=== PATIENT | male | born 1960 ===

== ENCOUNTER 2024-07-09 08:45 | Inpatient (IN) | payer OTHER ==
[~2024-07-09] VITALS: Ht 180.3 cm; Wt 76.7 kg
[2024-07-09 13:14] VITALS: BP 139/90
[2024-07-09 13:28] LABS: HEMATOCRIT 43.6 % (39.0-48.0); HEMOGLOBIN 14.5 g/dL (13-16.00); MEAN CORPUSCULAR HEMOGLOBIN 30.3 pg (27.00-32.0); MEAN CORPUSCULAR HGB CONC 33.2 g/dl (32.0-36.0); PLATELET COUNT 245 K/uL (150-450)
[2024-07-09 13:31] LABS: PH,URINE 5.5 (5.0-8.0); URINE APPEARANCE Clear; URINE BILIRRUBIN Negative (NEGATIVE); URINE BLOOD Negative; URINE COLOR Yellow; URINE GLUCOSE Negative (NEGATIVE); URINE KETONE Negative (NEGATIVE); URINE LEUKOCYTE Negative; URINE NITRATE Negative; URINE PROTEIN Negative (NEGATIVE); URINE UROBILINOGEN 0.2 E.U./dl
[2024-07-09 13:35] LABS: URINE BACTERIA 6.1 uL (0.0-1933)
[2024-07-09 13:46] LABS: INR 0.99; PARTIAL THROMBOPLASTIN TIME 26.8 SECONDS (22.0-34.0); PROTHROMBIN TIME 10.8 SECONDS (9.0-11.5)
[2024-07-09 13:47] LABS: URINE EPITHELIAL CELLS 0.7 uL (0.0-38.8); URINE RBC 1.9 uL (0.0-20.8); URINE WBC 0.7 uL (0.0-23.2)
[2024-07-09 14:59] LABS: BILIRUBIN TOTAL 0.6 mg/dL (0.3-1.2); CALCIUM 9.3 mg/dL (8.5-10.1); CREATININE SERUM 1.21 mg/dL (0.70-1.30); GFR 60.57; GLOBULINA 4.1 G/DL (2.4-3.5); POTASSIUM 4.57 mEq/L (3.5-5.1); TOTAL PROTEIN 8.1 gm/dL (6.4-8.2)
[2024-07-17] MEDS ORDERED: LIDOCAINE HCL 1%/EPINEPHRINE 20ML VIAL IJ ONE ×2 (12:45→13:04)
[2024-07-17] MEDS ORDERED: METRONIDAZOLE/SODIUM CHLORIDE 500 MG/100 ML PIGGYBACK IV ONE (12:45)
[2024-07-17] MEDS ORDERED: CEFTRIAXONE SODIUM 2,000 MG VIAL IV ONE (12:45)
[2024-07-17] MEDS ORDERED: BUPIVACAINE HCL/PF 0.25% 30ML VIAL InF ONE (12:45)
[2024-07-17] MEDS ORDERED: BUPIVACAINE HCL/MPF 0.5% 30ML VIAL ONE (13:04)
[2024-07-17] MEDS ORDERED: SUGAMMADEX SODIUM 200 MG/2 ML VIAL IV ONE (14:10)
[2024-07-17] MEDS ORDERED: MORPHINE SULFATE 4 MG/ML VIAL IV ONE ×2 (15:10→15:55)
[2024-07-17] MEDS ORDERED: ONDANSETRON HCL 2 MG/ML VIAL ONE (15:12)
[2024-07-17] MEDS ORDERED: MORPHINE SULFATE 4 MG/ML CARTRIDGE IV PRN (16:15)
[2024-07-17] MEDS ORDERED: DEXTROSE 50 % IN WATER 0.5 G/ML VIAL IV PRN (16:15)
[2024-07-17] MEDS ORDERED: ONDANSETRON HCL 2 MG/ML VIAL IV PRN (16:15)
[2024-07-17] MEDS ORDERED: OxyCODONE HCL 5 MG TABLET (ROXICODONE) PO PRN (16:15)
[2024-07-17] MEDS ORDERED: RINGERS SOLUTION,LACTATED 1,000 ML IV SCH (16:15)
[2024-07-17] MEDS ORDERED: METOCLOPRAMIDE HCL 5 MG/ML VIAL ONE (16:46)
[2024-07-17] MEDS ORDERED: HYOSCYAMINE SULFATE 0.125 MG TAB.SUBL SL SCH (17:00)
[2024-07-17] MEDS ORDERED: CELECOXIB 200 MG CAPSULE PO SCH (17:00)
[2024-07-17] MEDS ORDERED: GABAPENTIN 300 MG CAPSULE PO SCH (17:00)
[2024-07-17] MEDS ORDERED: METOCLOPRAMIDE HCL 5 MG/ML VIAL IV SCH (17:00)
[2024-07-17] MEDS ORDERED: SIMETHICONE 125 MG CAPSULE PO SCH (17:00)
[2024-07-17] MEDS ORDERED: POLYETHYLENE GLYCOL 3350 17 GM BLIST.PACK PO SCH (17:00)
[2024-07-17 17:44] LABS: BASO % 0.3 % (0.1-1.2); EOS # 0.01 (0.04-0.54); EOS % 0.1 % (0.7-7.0); HEMATOCRIT 40.4 % (40.1-51.0); HEMOGLOBIN 13.7 g/dL (13.7-17.5); LYMPH % 12.8 % (19.3-53.1); MEAN CORPUSCULAR HEMOGLOBIN 30.7 pg (25.6-32.2); MONO # 0.58 (0.24-0.82); NEUT # 9.54 (1.56-6.13); NEUT % 81.5 % (34.0-71.1); PLATELET COUNT 230 K/uL (163-369); RED BLOOD COUNT 4.46 M/uL (4.63-6.08); RED CELL DISTRIBUTION WIDTH 12.1 % (11.6-14.4)
[2024-07-17] MEDS ORDERED: ACETAMINOPHEN 500 MG GEL..CAP PO SCH (20:00)
[2024-07-17] MEDS ORDERED: SIMETHICONE 125 MG CAPSULE PO ONE (20:21)
[2024-07-17] MEDS ORDERED: FAMOTIDINE/PF 20 MG/2 ML VIAL ONE (20:22)
[2024-07-17] MEDS ORDERED: ACETAMINOPHEN 500 MG GEL..CAP PO ONE (20:22)
[2024-07-17 20:30] VITALS: BP 113/73; O2SAT 97
[2024-07-17] MEDS ORDERED: FAMOTIDINE/PF 20 MG/2 ML VIAL IV PUSH SCH (21:00)
[2024-07-18 01:15] VITALS: BP 104/68; O2SAT 97
[2024-07-18 07:38] LABS: BASO % 0.3 % (0.1-1.2); EOS # 0.06 (0.04-0.54); EOS % 0.8 % (0.7-7.0); HEMATOCRIT 37.3 % (40.1-51.0); HEMOGLOBIN 12.3 g/dL (13.7-17.5); LYMPH # 2.07 (1.18-3.74); LYMPH % 27.4 % (19.3-53.1); MEAN CORPUSCULAR HEMOGLOBIN 30.1 pg (25.6-32.2); MONO # 0.61 (0.24-0.82); MONO % 8.1 % (4.7-12.5); NEUT # 4.79 (1.56-6.13); NEUT % 63.3 % (34.0-71.1); PLATELET COUNT 212 K/uL (163-369); RED BLOOD COUNT 4.08 M/uL (4.63-6.08); RED CELL DISTRIBUTION WIDTH 12.1 % (11.6-14.4)
[2024-07-18 08:00] VITALS: BP 133/80; O2SAT 95
[2024-07-18 08:14] LABS: ALBUMIN 2.9 gm/dL (3.4-5.0); CALCIUM 7.9 mg/dL (8.5-10.1); CREATININE SERUM 1.15 mg/dL (0.70-1.30); GFR 64.23; MAGNESIUM 1.8 mg/dL (1.8-2.4); PHOSPHOROUS 3.6 mg/dL (2.5-4.9); POTASSIUM 4.39 mEq/L (3.5-5.1)
[2024-07-18] MEDS ORDERED: LACTOBACILLUS ACIDOPHILUS 1 CAP CAP PO SCH (09:00)
[2024-07-18] MEDS ORDERED: LACTULOSE 20 G/30 ML BLIST.PACK PO SCH (09:00)
[2024-07-18 16:49] VITALS: BP 127/79; O2SAT 95
[2024-07-18] MEDS ORDERED: ENOXAPARIN SODIUM 40 MG/0.4 ML SYRINGE SUBCUTANEO SCH (17:00)
[2024-07-19 01:03] VITALS: BP 108/71; O2SAT 100
[2024-07-19 08:56] VITALS: BP 152/90; O2SAT 94
[2024-07-19] MEDS ORDERED: ENOXAPARIN SODIUM 40 MG/0.4 ML SYRINGE SUBCUTANEO SCH (09:00)
[2024-07-19 16:00] VITALS: BP 148/87; O2SAT 97
== END 2024-07-19 19:07 | disposition home or self-care (01) | DRG 330 ==
LOC: SURH 07-17 08:45 → O/R 07-17 09:00 → SURH 07-17 09:00 → O/R 07-18 09:03 → SURH 07-18 09:06
PROVIDERS: ADMIT Colon & Rectal Surgery; ATTEND Colon & Rectal Surgery
PROC: 0D1N4Z4 Bypass Sigmoid Colon to Cutaneous, Percutaneous Endoscopic Approach (ICD-10-PCS; principal; 2024-07-17 15:00)
DX: K57.20 Diverticulitis of large intestine with perforation and abscess without bleeding (principal); K56.699 Other intestinal obstruction unspecified as to partial versus complete obstruction; Z43.3 Encounter for attention to colostomy

== ENCOUNTER 2024-09-18 18:06 | Emergency (ER) | payer OTHER ==
[~2024-09-18] VITALS: Ht 177.8 cm; Wt 76.2 kg
[2024-09-18] MEDS ORDERED: CELEBREX200MG PO (18:44)
[2024-09-18] MEDS ORDERED: ABATINEX (18:45)
[2024-09-18] MEDS ORDERED: TRAMADOL HCL 50 MG TABLET PO STA (22:35)
[2024-09-18 22:38] LABS: BASO % 0.3 % (0.1-1.2); EOS # 0.25 (0.04-0.54); EOS % 2.9 % (0.7-7.0); LYMPH # 4.07 (1.18-3.74); LYMPH % 46.8 % (19.3-53.1); MEAN PLATELET VOLUME 9.60 fl (9.4-12.4); MONO # 0.61 (0.24-0.82); MONO % 7.0 % (4.7-12.5); NEUT # 3.72 (1.56-6.13); NEUT % 42.8 % (34.0-71.1); RED CELL DISTRIBUTION WIDTH 11.9 % (11.6-14.4)
[2024-09-18 22:56] LABS: INR 1.0
[2024-09-18 23:01] LABS: ALT/SGPT 24.0 U/L (12-78); AST/SGOT 12.0 U/L (15-37); BILIRUBIN TOTAL 0.82 mg/dL (0.3-1.2); BUN CREA RATIO 11.0 (7.0-25.0); CREATININE SERUM 1.18 mg/dL (0.70-1.30); GFR 62.35; GLOBULINA 4.1 G/DL (2.4-3.5); GLUCOSE FASTING 78.0 mg/dL (65-100); OSMOLALITY SERUM 284.0 MOSM/KG (275-295)
[2024-09-19] MEDS ORDERED: INTESTINEX680 M2 PO (01:57)
[2024-09-19] MEDS ORDERED: CELEBREX200MG PO (01:57)
== END 2024-09-19 02:29 ==
LOC: ER 18:06
DX: R10.9 Unspecified abdominal pain (principal); K57.32 Diverticulitis of large intestine without perforation or abscess without bleeding; Z93.3 Colostomy status; K59.00 Constipation, unspecified; N20.0 Calculus of kidney